=== PATIENT | female | born 1980 | race Caucasian/White ===

== ENCOUNTER 2023-06-19 08:47 | Day surgery (SDC) | payer OTHER ==
[2023-06-16 08:51] VITALS: BP 137/85
[~2023-06-19] VITALS: Ht 170.2 cm; Wt 104.5 kg
[2023-06-19 09:03] VITALS: BP 157/78
[2023-06-19] MEDS ORDERED: ACETAMINOPHEN500 MG PO (13:32)
[2023-06-19] MEDS ORDERED: IBUPROFEN600 MG PO (13:32)
[2023-06-19] MEDS ORDERED: OXYCODON-ACETA1 EAC2 PO (13:32)
[2023-06-19 13:43] VITALS: BP 144/87
--- NOTE | 2023-06-19 13:51 | NUR ---
06/19/23 1351 Cassy Tineo 1319- PT ARRIVED TO PACU, AWAKE AND TALKING BUT DROWSY. ALL MONITORS APPLIED. LR INFUSING TO LFA IV. PT ANSWERS QUESTIONS APPROPRIATELY. DENIES NAUSEA. C/O 2/10 SORENESS TO RIGHT BREAST BUT TOLERABLE. PT IS TEARFUL, TISSUES PROVIDED. 1325- CONTINUE TO MONITOR PT, NO CHANGE IN STATUS. PAIN REMAINS THE SAME, DISCUSSED EATING AND PAIN PILL WITH PT PRIOR TO NUMBING WEARING OFF. PT VERBALIZES UNDERSTANDING. INTERMITTENT TEARS. 1330- PT REMAINS UNCHANGED, VITAL SIGNS STABLE. MAINTAINING O2 SATS ABOVE 92% ON ROOM AIR. WILL GET PT READY TO MOVE BACK TO DAY SURGERY. 1340- PT TAKEN VIA BED BACK TO DAY SURGERY, ALERT AND REMAINS INTERMITTENTLY TEARFUL. LR INFUSING TO LFA IV. PT ANSWERING QUESTIONS APPROPRIATELY. BEDSIDE REPORT GIVEN TO MAGDALENA NAVARRETE. CARE OF PT TURNED OVER AT THIS TIME.
--- NOTE | 2023-06-19 13:54 | NUR ---
LE 1340 PATIENT IN ROOM 4. VITAL SIGNS COMPLETE. PATIENT ALERT AND ORIENTED. BREATHING EQUAL AND UNLABORED. OXYGEN SATURATIONS ABOVE 90% ON ROOM AIR. PATIENT PAIN IS A 2/10. PATIENT STATES IT IS TOLERABLE. PATIENT DENIES BEING NASEAUTED. SURGICAL SITE CLEAN, DRY AND INTACT. IVF INFUSING. SCD'S ON. CALL LIGHT WITHIN REACH NO FUTHER NEEDS. NO QUESTIONS AT THIS TIME.
[2023-06-19 14:24] VITALS: BP 140/72
--- NOTE | 2023-06-19 15:05 | NUR ---
LE 1416 PATIENT GIVEN PRN PAIN MEDICINE. LE 1440 PATIENT HAS MET DISCHARGE CRITERIA. PATIENT IV D/C'D WNL. PATIENT GIVEN DISCHARGE INSTRUCTIONS. NO QUESTIONS AT THIS TIME. PATIENT WHEELED OUT OF FACILITY. NO FUTHER NEEDS.
--- NOTE | 2023-06-20 19:34 | OR ---
[facility] [address], [place] [address] Signed DATE OF OPERATION: 06/19/2023 SURGEON: Aparna Latham MD PREOPERATIVE DIAGNOSIS: Right central breast infiltrating ductal carcinoma, grade 1 of 3, ER/FL positive, 1.3 cm in size. POSTOPERATIVE DIAGNOSIS: Right central breast infiltrating ductal carcinoma, grade 1 of 3, ER/FL positive, 1.3 cm in size. PROCEDURES: 1. Injection of methylene blue dye for sentinel lymph node identification. 2. Right deep sentinel lymph node biopsy (three nodes excised). 3. Right needle localized partial mastectomy (central breast). ANESTHESIA: General endotracheal, Rigoberto Maradiaga CRNA. INDICATIONS: This 43-year-old white woman is a patient of Dr. Manuel Hairston. She was identified on screening mammogram to have an abnormality in the retroareolar area of the right breast in the mid depth. There was no palpable mass. She had no symptoms or signs of abnormality otherwise. Ultrasound and ultimately ultrasound-guided biopsy were performed confirming an infiltrating ductal carcinoma in the right breast in the retroareolar (central breast) area. Lesion was grade 1 of 3 and was ER/FL positive, HER-2/betina receptor is pending. 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 The lesion was considered to be 1.3 cm in size based on ultrasound criteria. She has a grandfather who had breast cancer but no other family history of breast cancer that she is aware of. Her options of management have been reviewed. She plans now for partial mastectomy, sentinel lymph node biopsy. Postoperative radiation therapy and other indicated interventions as pathology might warrant. The risk of bleeding, infection, cosmetic deformity, and so forth were reviewed with her in detail. She understands and wished to proceed. FINDINGS: Good localization of the lesion was noted on wire localized technique. Wide and deep excision of the mass was undertaken. A lateral margin of the excision site was somewhat granular in consistency and an additional margin was taken on the lateral aspect of the Electronically Signed By: APARNA LATHAM MD 06/20/23 1934 PATIENT NAME: AI TREVINO OPERATIVE REPORT DATE OF : 80 REPORT #: [id number] PHYSICIAN: APARNA LATHAM MD PCP: NO PRIMARY CARE PHYSICIAN REPORT IS CONFIDENTIAL AND NOT TO BE RELEASED WITHOUT AUTHORIZATION [facility] [address], [place] [address] Signed specimen. As regards sentinel lymph nodes avid uptake of dye and radiant nuclide was noted on the largest initial sentinel lymph node. Two other smaller lymph nodes were identified and dominantly with radionuclide. The remaining axilla was otherwise normal. PROCEDURE IN DETAIL: The patient was received from Radiology suite, taken to the operating room, given a general endotracheal anesthetic. Preoperative antibiotic of Ancef was given. Sequential compression device stockings used and heparin subcutaneously administered. The localizing wire was emanating from the medial aspect of the right breast with the lesion in the central breast itself. 0.5 mL of methylene blue dye was injected in the subepithelial space in the upper outer aspect of the right areola. The chest, axilla, and breast was prepared with a spray of Betadine type solution and draped sterilely. Interrogation of the right axilla with the C-Trak probe was undertaken showing avid uptake in the mid axilla just lateral to the pectoral muscle. A transverse incision was made there and using electrocautery, the dermis was divided. Sequential division of the subcutaneous tissue down to the axillary fat was undertaken ultimately identifying a dominant blue lymphatic. This was carefully followed into the depths of the axilla, ultimately identifying 1.5 cm lymph node that had good uptake of dye and radionuclide. This was secured with clips and ultimately excised and passed as sentinel lymph node #1. Additional interrogation of the deep axilla showed two other similar such nodes though with less blue dye uptake. These were sent as specimen separately. Hemostasis was assured with a few small clips and the wound was packed. Attention was turned towards the breast lesion itself. The areolar margin was marked and tension placed on the central breast and a curvilinear incision was made on the areolar margin in the medial aspect. Dissection was carried through the dermis with electrocautery. A flap was elevated medially allowing for delivery of the localizing wire. The wire was then grasped with parenchyma with an Allis clamp and wide resection undertaken using electrocautery. The lesion was entering medial to the breast extending to the retroareolar area largely, but in the mid to deeper portion of the breast itself. A wide resection was undertaken with meticulous care hoping to provide a negative margin. Specimen was oriented with a short stitch superiorly and long stitch medially. A specimen radiograph was performed which confirmed the offending lesion clip and wire in place. Reinspection of the biopsy excision site showed some firm and granular tissue on the lateral aspect of the cavity. This was widely excised and a new margin marked with sutures as well and labeled appropriately. Irrigation was undertaken with sterile water. Electrocautery was used Electronically Signed By: APARNA LATHAM MD 06/20/23 193 PATIENT NAME: AI TREVINO OPERATIVE REPORT DATE OF : [birth year] REPORT #: [id number] PHYSICIAN: APARNA LATHAM MD PCP: NO PRIMARY CARE PHYSICIAN REPORT IS CONFIDENTIAL AND NOT TO BE RELEASED WITHOUT AUTHORIZATION [facility] [address] [place], [place] [address] Signed for hemostasis. Lou hemostatic agent was insufflated into the cavity as well. The parenchyma was reapproximated with interrupted 2-0 Vicryl, providing excellent cosmesis of the central breast. The skin was closed with running subcuticular 3-0 Vicryl. Inspection of the right axilla shows good hemostasis. This wound too was closed with interrupted 2-0 Vicryl in a running subcuticular 3-0 Vicryl and Steri-Strips were applied to both sites as were Acticoat dressings. The patient tolerated the procedure well. Blood loss was less than 50 mL in aggregate. Sponge, needle, and instrument counts reported as correct x3. MD CHERYL De La Cruz/JULI /[id number] cc: Dr. Solis Hairston Copies: ~ Electronically Signed By: APARNA LATHAM MD 06/20/23 1934 PATIENT NAME: AI TREVINO OPERATIVE REPORT DATE OF : [birth year] REPORT #: [id number] PHYSICIAN: APARNA LATHAM MD PCP: NO PRIMARY CARE PHYSICIAN REPORT IS CONFIDENTIAL AND NOT TO BE RELEASED WITHOUT AUTHORIZATION
--- NOTE | 2023-06-23 11:41 | PATH ---
[facility] [address] [place], [place] [address] Signed SPECIMEN(S): A BREAST SENTINEL LYMPH NODE 1 SPECIMEN(S): B BREAST SENTINEL LYMPH NODE 2 SPECIMEN(S): C BREAST SENTINEL LYMPH NODE 3 SPECIMEN(S): D ADDITIONAL RIGHT AXILLARY TISSUE SPECIMEN(S): E RIGHT BREAST SPECIMEN(S): F RIGHT BREAST SPECIMEN SOURCE: A. BREAST SENTINEL LYMPH NODE 1 B. BREAST SENTINEL LYMPH NODE 2 C. BREAST SENTINEL LYMPH NODE 3 D. ADDITIONAL RIGHT AXILLARY TISSUE E. RIGHT BREAST F. RIGHT BREAST CLINICAL HISTORY: Infiltrating ductal carcinoma right breast. Specimen Time to Fixation- 06/19/2023 12:46:00 PM FINAL PATHOLOGIC DIAGNOSIS: A. Lymph node, sentinel #1, excision: - One lymph node, negative for metastatic carcinoma (0/1) B. Lymph node, sentinel #2, excision: - One lymph node, negative for metastatic carcinoma (0/1) C. Lymph node, sentinel #3, excision: - One lymph node, negative for metastatic carcinoma (0/1) D. Lymph nodes, additional right axillary, excision: - Three lymph nodes, negative for metastatic carcinoma (0/3) E. Breast, right, lumpectomy: - Invasive ductal carcinoma, see synoptic report F. Breast, right "additional lateral margin", excision: - Ductal carcinoma in situ, negative for invasive carcinoma - Ductal carcinoma in situ is 4 mm from the new lateral margin INVASIVE CARCINOMA OF THE BREAST: Resection SPECIMEN Procedure: Excision (less than total mastectomy) Specimen Laterality: Right TUMOR Tumor Site: Not specified Histologic Type: Invasive carcinoma of no special type (ductal) Glandular (Acinar) / Tubular Differentiation: Score 3 PATIENT NAME: AI TREVINO PATHOLOGY DATE OF : [birth year] REPORT #: [id number] PHYSICIAN: RADHA PATHOLOGY PCP: NO PRIMARY CARE PHYSICIAN REPORT IS CONFIDENTIAL AND NOT TO BE RELEASED WITHOUT AUTHORIZATION [facility] [address] [place], [place] [address] Signed Nuclear Pleomorphism: Score 3 Mitotic Rate: Score 2 Overall Grade: Grade 3 (scores of 8 or 9) Tumor Size: Greatest dimension of largest invasive focus (Millimeters) - 28 mm Tumor Focality: Single focus of invasive carcinoma Ductal Carcinoma In Situ (DCIS): Present - Positive for extensive intraductal component (EIC) Size (Extent) of DCIS: Estimated size (extent) of DCIS is at least (Millimeters) - 30 mm Architectural Patterns: Cribriform Nuclear Grade: Grade II (intermediate) Necrosis: Not identified Lymphovascular Invasion: Not identified Microcalcifications: Not identified Treatment Effect in the Breast: No known presurgical therapy MARGINS Margin Status for Invasive Carcinoma: All margins negative for invasive carcinoma Distance from Invasive Carcinoma to Closest Margin: Greater than - 5 mm Closest Margin(s) to Invasive Carcinoma: Lateral Margin Status for DCIS: All margins negative for DCIS Distance from DCIS to Closest Margin: 4 mm Closest Margin(s) to DCIS: Lateral REGIONAL LYMPH NODES Regional Lymph Node Status: All regional lymph nodes negative for tumor Total Number of Lymph Nodes Examined (sentinel and non-sentinel): 6 Number of [place] Nodes Examined: 3 PATHOLOGIC STAGE CLASSIFICATION (pTNM, AJCC 8th Edition) Reporting of pT, pN, and (when applicable) pM categories is based on information available to the pathologist at the time the report is issued. As per the AJCC (Chapter 1, 8th Ed.) it is the managing physician's responsibility to establish the final pathologic stage based upon all pertinent information, including but potentially not limited to this pathology report. pT Category: pT2 pN Category: pN0 ADDITIONAL FINDINGS Additional Findings: Biopsy site changes, fibroadenomatous changes, fibrocystic changes Breast Biomarker Testing Performed on Previous Biopsy: PATIENT NAME: AI TREVINO PATHOLOGY DATE OF : [birth year] REPORT #: [id number] PHYSICIAN: RADHA DIAZ PCP: NO PRIMARY CARE PHYSICIAN REPORT IS CONFIDENTIAL AND NOT TO BE RELEASED WITHOUT AUTHORIZATION [facility] [address] [place] [id number] Signed Estrogen Receptor (ER) Status: Positive (greater than 10% of cells demonstrate nuclear positivity) Progesterone Receptor (PgR) Status: Negative HER2 (by immunohistochemistry): Negative (Score 0) Testing Performed on COMMENT: For parts A-C, histochemical stains for AE1/AE3 are performed and support the above interpretation. As part of [employer] Quality Improvement Program, this case was reviewed by another member of our pathology staff. P MICROSCOPIC EXAMINATION: Histologic sections of all submitted blocks are examined by light microscopy. These findings, together with the gross examination, support the pathologic diagnosis. GROSS DESCRIPTION: A. The specimen, labeled and designated "Dany, sentinel lymph node #1," is received in formalin and consists of irregular shaped yellow-bales, fibroadipose tissue that measure 3.0 x 2.2 x 0.8 cm. Sectioning through the specimen to reveal one possible lymph node that measure 1.3 x 0.7 x 0.7 cm. Possible lymph node is previously blue-colored. Possible lymph node is bisected. Entirely submitted in (A1). B. The specimen, labeled and designated "Dany, sentinel lymph nodes #2," is received in formalin and consists of irregular shaped yellow-bales, fibroadipose tissue fragment that measures 2.2 x 1.4 x 0.8 cm. Sections through the specimen reveal pink-bales possible lymph node that measure 1.5 x 1.2 x 0.7 cm. Possible lymph node is bisected and entirely submitted in (B1). C. The specimen, labeled and designated "Dany, sentinel node #3," is received in formalin and consists of irregular shaped yellow-bales, fibroadipose tissue fragment that measure 2.5 x 1.7 x 0.7 cm. Sectioning through the specimen reveals pink-bales, possible lymph node that measures 0.4 cm in greatest dimension. Possible lymph node is entirely submitted in (C1). D. The specimen, labeled and designated "Dany, additional right axillary tissue," is received in formalin and consists of irregular shaped yellow-bales PATIENT NAME: AI TREVINO PATHOLOGY DATE OF : [birth year] REPORT #: [id number] PHYSICIAN: RADHA DIAZ PCP: NO PRIMARY CARE PHYSICIAN REPORT IS CONFIDENTIAL AND NOT TO BE RELEASED WITHOUT AUTHORIZATION [address] [address] Signed fibroadipose tissue that measure 5.2 x 3.3 x 0.7 cm. Sectioning through the specimen reveals regular adipose tissue. Lymph node tissued are not grossly identified. Entirely submitted in (D1-D4). E. The specimen, labeled and designated "Dany, right breast tissue," is received in formalin and consists of fibroadipose tissue that measure 6.5 x 4.5 x 5.5 cm. The specimen weighs 69 g. Specimen is oriented: Short stitch-superior, long stitch-medial. Specimen is inked: Superior-blue, inferior-green, anterior-yellow, posterior-black, medial-red, lateral-orange. The specimen is serially sectioned from anterior to posterior in 16 slides. Sectioning through the specimen reveals pink-bales, ill-defined, irregular shaped lesion that measure 2.8 x 2.8 x 2.0 cm. Sectioning through the lesion reveals reese-white, gritty surface with area of congestion that measure 0.8 x 0.2 cm. The lesion is 0.8 cm from anterior margin, 3.0 cm from posterior margin, 0.3 cm from inferior margin, 0.8 cm from superior margin, abuts lateral margin and 1.5 cm from medial margin. Metal coiled wire biopsy clip is identified in slice #7. Fibrous tissue is approximately 20% of the specimen. The remaining tissue is regular fibroadipose tissue. Cassette Summary: (E1) lesion with lateral and inferior margin, where the biopsy clip is identified (E2) lesion with lateral and inferior margin (E3) lesion to inferior margin (E4) lesion to superior margin (E5) medial margin closest to the lesion, sales representative health insurance section (E6) lesion with congested tissue, sales representative health insurance section (E7) anterior margin, perpendicular section (E8) posterior margin, perpendicular section F. The specimen, labeled and designated "Dany, right breast additional excision lateral margin," is received in formalin and consists of yellow-bales, fibroadipose tissue that measured 5.0 x 5.0 x 1.8 cm. The specimen weighs 24 g. 3 black sutures sandeep the new margin. The new margin is inked black and the opposite side is inked blue. Sectioning through the specimen reveals irregular shaped pink-white fibrous tissue that measure 1.5 x 1.2 x 0.8 cm. The fibrous tissue abuts the new margin. Grossing to the surface of the new margin is not grossly identified. No definitive masses are grossly identified. The fibrous tissue is approximately 10% of the specimen. Entire fibrous tissue with new and old margin is submitted in (F1-F7). PATIENT NAME: AI TREVINO PATHOLOGY DATE OF : [birth year] REPORT #: [id number] PHYSICIAN: RADHA PATHOLOGY PCP: NO PRIMARY CARE PHYSICIAN REPORT IS CONFIDENTIAL AND NOT TO BE RELEASED WITHOUT AUTHORIZATION [facility] [address] [place] [address] Signed Cold ischemic time: 11 minutes Approximate time in formalin: 43 hours and 15 minutes JS (under the direct supervision of a pathologist) The Gross Description was prepared using a voice recognition system. The report was reviewed for accuracy; however, sound-alike word errors, addition and/or deletions may occur. If there is any question about this report, please contact Client Services. ADDITIONAL NOTES: Immunohistochemical and/or in situ hybridization studies if performed in this case included appropriate positive controls that reacted as expected. This test was developed and its performance characteristics determined by [employer] It has not been cleared or approved by the U.S. Food and Drug Administration. The FDA has determined that such clearance or approval is not necessary. This test is used for clinical purposes. It should not be regarded as investigational or for research. [employer] is certified under the Clinical Laboratory Improvement Amendments of 1988 (CLIA) as qualified to perform high complexity clinical laboratory testing. PERFORMING LABORATORY: Technical component was performed by [employer] [address] [place] [id number] (CLIA# [id number]). Professional interpretation was performed by [facility] [address] [place] [phone] [id number] Diagnostician: Blaine Herrera MD Pathologist Electronically Signed 06/23/2023 Copies: ~ PATIENT NAME: AI TREVINO PATHOLOGY DATE OF : [birth year] REPORT #: [id number] PHYSICIAN: RADHA DIAZ PCP: NO PRIMARY CARE PHYSICIAN REPORT IS CONFIDENTIAL AND NOT TO BE RELEASED WITHOUT AUTHORIZATION
== END 2023-06-19 14:40 | disposition home or self-care (01) ==
LOC: DS 08:47 → MAM 08:47 → DS 11:30
PROVIDERS: ATTEND Surgery
PROC: 0HBT0ZZ Excision of Right Breast, Open Approach (ICD-10-PCS; principal; 2023-06-19 11:30)
PROC: 07B50ZZ Excision of Right Axillary Lymphatic, Open Approach (ICD-10-PCS; 2023-06-19 11:30)
DX: D05.11 Intraductal carcinoma in situ of right breast (principal); Z80.3 Family history of malignant neoplasm of breast; Z87.891 Personal history of nicotine dependence
CPT/HCPCS: 00400; 19281; 76098; J0131; J0690; J1100; J1644; J1885; J2001; J2405; J2704; J3010; J3475; J3490; J7121; Q9968

== ENCOUNTER 2025-02-03 08:45 | Day surgery (SDC) | payer OTHER ==
[2025-01-27 15:54] VITALS: BP 146/81
[~2025-02-03] VITALS: Ht 170.2 cm; Wt 100.9 kg
[~2025-02-03 08:45] MED LIST: ACETAMINOPHEN500 MG PO; BIOTIN5 MG PO; FISH OIL 500 M1 EAC1 PO; GINGER500 MG PO; IBLOOD GLUCOSE TEST STRIP 1 EA TEST VI PRN; IBUPROFEN600 MG PO; LACTATED RINGER'S 1,000 ML IV SCH; LIDOCAINE HCL 1% 5 ML SDV INJ ONE; MAGNESIUM250 MG PO; MULTIVITAMIN1 EACH PO; OXYCODON-ACETA1 EAC2 PO; TURMERIC500 M3 PO; VITAMIN C500 M4 PO; VITAMIN D3125 MC2 PO
[2025-02-03 09:19] VITALS: BP 124/72
--- NOTE | 2025-02-03 10:02 | NUR ---
0852: PATIENT ASKED TO COMPLETE TEST PRIOR TO RECEIVING ANESTHESIA FOR SURGERY. PATIENT DECLINED STATING THAT POST BREAST CA AND MEDICATIONS SHE TAKES HAS PUT HER IN TO MENOPAUSE AND SHE HASN'T HAD A PERIOD IN YEARS.
[2025-02-03] MEDS ORDERED: MIDAZOLAM HCL 2 MG/2 ML VIAL ONE ×2 (10:31→10:56)
[2025-02-03] MEDS ORDERED: KETOROLAC TROMETHAMINE 30 MG/ML VIAL ONE ×2 (10:31→10:48)
[2025-02-03] MEDS ORDERED: SUGAMMADEX SODIUM 200 MG/2 ML ML ONE ×2 (10:31→10:55)
[2025-02-03] MEDS ORDERED: fentaNYL citrate 100 MCG/2 ML VIAL ONE ×2 (10:31→10:57)
[2025-02-03] MEDS ORDERED: ACETAMINOPHEN 1,000 MG/100 ML VIAL ONE ×2 (10:31→10:56)
[2025-02-03] MEDS ORDERED: ondansetron HCL 4 MG/2 ML VIAL ONE ×2 (10:31→10:48)
[2025-02-03] MEDS ORDERED: propofoL 200 MG/20 ML VIAL ONE ×2 (10:31→10:48)
[2025-02-03] MEDS ORDERED: LIDOCAINE HCL 2% 20 MG/ML VIAL INJ ONE (10:31)
[2025-02-03] MEDS ORDERED: LIDOCAINE HCL 2% 5 ML SDV ONE ×2 (10:31→10:48)
[2025-02-03] MEDS ORDERED: ROCURONIUM BROMIDE 50 MG/5 ML SYR ONE ×2 (10:31→10:48)
[2025-02-03] MEDS ORDERED: DEXAMETHASONE SOD PHOS 4 MG/ML VIAL ONE ×2 (10:31→10:48)
[2025-02-03] MEDS ORDERED: dexmedeTOMIDine HCl 200 MCG/2 ML VIAL ONE ×2 (10:34→10:48)
[2025-02-03] MEDS ORDERED: LIDOCAINE HCL 1% 30 ML SDV ONE (10:48)
[2025-02-03] MEDS ORDERED: KETAMINE in NS 50 MG/5 ML SYR ONE (10:51)
[2025-02-03] MEDS ORDERED: LACTATED RINGER'S 1,000 ML IV ONE (11:49)
[2025-02-03] MEDS ORDERED: HYDROCODONE/ACETA 5/325 TAB PO PRN (12:15)
[2025-02-03] MEDS ORDERED: FAMOTIDINE 20 MG/ 2 ML VIAL IV PRN (12:15)
[2025-02-03] MEDS ORDERED: LACTATED RINGER'S 1,000 ML IV SCH (12:15)
[2025-02-03] MEDS ORDERED: NALOXONE HCL 0.4 MG SYR IV PRN ×2 (12:15→13:15)
[2025-02-03] MEDS ORDERED: ondansetron HCL 4 MG/2 ML VIAL IV PRN ×2 (12:15→13:15)
--- NOTE | 2025-02-03 12:28 | NUR ---
02/03/25 1228 Cathryn Rojas 1218-PT ARRIVES TO PACU VIA STRETCHER, RESTING SEMI FOWLERS, PT AWAKENS ON OWN BUT DROWSY, DENIES PAIN OR NAUSEA, VSS ON 6L VIA MASK. 1225-PT TITRATED TO RA, VS REMAIN STABLE.
[2025-02-03 13:00] VITALS: BP 131/62
[2025-02-03] MEDS ORDERED: SIMETHICONE 80 MG CHEW PO SCH (13:00)
[2025-02-03] MEDS ORDERED: PROCHLORPERAZINE EDISYLATE 10 MG/2 ML VIAL IV PRN (13:15)
[2025-02-03] MEDS ORDERED: IBLOOD GLUCOSE TEST STRIP 1 EA TEST VI PRN (13:15)
[2025-02-03] MEDS ORDERED: HYDROmorphone HCL 1 MG/ML SYR IV PRN (13:15)
[2025-02-03] MEDS ORDERED: fentaNYL citrate 50 MCG/ML SDV IV PRN (13:15)
[2025-02-03] MEDS ORDERED: droPERidol 5 MG/2 ML VIAL IV PRN (13:15)
[2025-02-03 13:58] VITALS: BP 112/54
[2025-02-03] MEDS ORDERED: SEVOFLURANE 250 ML BTL INH ONE (15:54)
--- NOTE | 2025-02-03 16:30 | NUR ---
1300: PATIENT BACK IN DAY SURGERY ROOM FROM PACU. RATES PAIN 3/10 IN ABDOMEN. PATIENT WITH 3 LAP SITES TO ABDOMEN. ALL SITES WNL. NO DRESSINGS ON SITES. NO DRAINAGE FROM SITES. IV SITE WNL. VS CHECKED. TOLERATING WATER. FRIEND AT BEDSIDE. CALL LIGHT WITHIN REACH. 1340: PATIENT ASSISTED OOB AND TO BATHROOM. GAIT STEADY TO AND FROM BATHROOM. VOID APPROXIMATELY 125 ML. SMALL AMOUNT OF BLOODY DRAINAGE FROM VAGINA SEEN IN HAT. PATIENT GETTING DRESSED. 1358: DISCHARGE INSTRUCTIONS GIVEN TO PATIENT AND FRIEND. VS CHECKED. IV DC'D WNL. TIP INTACT. DRESSING APPLIED. 1400: PATIENT DISCHARGED TO HOME WITH FRIEND VIA WHEELCHAIR.
--- NOTE | 2025-02-08 17:56 | PATH ---
[facility] [address] [place], [place] [address] Signed SPECIMEN(S): A BILATERAL FALLOPIAN TUBES AND OVARIES SPECIMEN SOURCE: A. BILATERAL FALLOPIAN TUBES AND OVARIES CLINICAL HISTORY: Risk reducing FINAL PATHOLOGIC DIAGNOSIS: Bilateral fallopian tubes and ovaries: - Two benign ovaries and oviducts. JVR MICROSCOPIC EXAMINATION: Histologic sections of all submitted blocks are examined by light microscopy. These findings, together with the gross examination, support the pathologic diagnosis. GROSS DESCRIPTION: The specimen, labeled and designated "Alice Saenz., bilateral fallopian tubes and ovaries per requisition," is received in formalin and consists of 2 violaceous fallopian tubes and attached ovaries with undesignated laterality. The first arbitrarily designated fallopian tube measures 4.7 x 0.5 x 0.5 cm and has an attached fimbriated end. The serosal surface is smooth with multiple pinpoint paratubal cyst. The attached ovary weighs 4 g and measures 3 x 1.8 x 1.4 cm. Specimen is serially sectioned revealing an intraparenchymal cyst measuring 1 cm in greatest dimension. There are no papillary excrescences present. The parenchyma is unremarkable. The second arbitrarily designated fallopian tube measures 5.6 x 0.8 x 0.6 cm and has an attached fimbriated end. The serosal surface is smooth with multiple pinpoint paratubal cysts. Corresponding ovary weighs 3 g and measures 2.5 x 1.7 x 1.2 cm. Specimen is serially sectioned revealing unremarkable ovarian parenchyma. Signals Collection Technician sections are submitted as follows: Cassette Summary: (A1) first fallopian tube, fimbriated end totally embedded (A2) first ovary, RS (A3) second fallopian tube, fimbriated end totally embedded (A4) second ovary, RS PATIENT NAME: AI SAENZ PATHOLOGY DATE OF : 80 REPORT #: [id number] PHYSICIAN: [facility] [employer] [facility] PCP: JUDI MORGAN MD REPORT IS CONFIDENTIAL AND NOT TO BE RELEASED WITHOUT AUTHORIZATION [facility] [address] [place], [place] [address] Signed AA (under the direct supervision of a pathologist) The Gross Description was prepared using a voice recognition system. The report was reviewed for accuracy; however, sound-alike word errors, addition and/or deletions may occur. If there is any question about this report, please contact Client Services. ADDITIONAL NOTES: Immunohistochemical and/or in situ hybridization studies if performed in this case included appropriate positive controls that reacted as expected. This test was developed and its performance characteristics determined by [facility]. It has not been cleared or approved by the U.S. Food and Drug Administration. The FDA has determined that such clearance or approval is not necessary. This test is used for clinical purposes. It should not be regarded as investigational or for research. [facility] is certified under the Clinical Laboratory Improvement Amendments of 1988 (CLIA) as qualified to perform high complexity clinical laboratory testing. PERFORMING LABORATORY: Technical component was performed by [facility], [address] [place] [id number] (CLIA# [id number]). Professional interpretation was performed by [email or web address] - [place] [facility] - [address] [place] [address] (CLIA#: [id number]). Diagnostician: Sunny Arevalo MD Pathologist Electronically Signed 02/08/2025 Copies: ~ PATIENT NAME: BELINDAAI E PATHOLOGY DATE OF : [birth year] REPORT #: [id number] PHYSICIAN: RADHA PATHOLOGY PCP: JUDI MORGAN MD REPORT IS CONFIDENTIAL AND NOT TO BE RELEASED WITHOUT AUTHORIZATION
== END 2025-02-03 14:00 | disposition home or self-care (01) ==
LOC: DS 08:45 → OPS 08:45 → DS 09:30 → OPS 09:30 → DS 12:00 → OPS 14:00
PROVIDERS: ATTEND Obstetrics & Gynecology
PROC: 0UT74ZZ Resection of Bilateral Fallopian Tubes, Percutaneous Endoscopic Approach (ICD-10-PCS; 2025-02-03)
PROC: 0UT24ZZ Resection of Bilateral Ovaries, Percutaneous Endoscopic Approach (ICD-10-PCS; principal; 2025-02-03 10:30)
DX: Z40.02 Encounter for prophylactic removal of ovary(s) (principal); C50.911 Malignant neoplasm of unspecified site of right female breast; Z79.899 Other long term (current) drug therapy; Z88.0 Allergy status to penicillin
CPT/HCPCS: 00840; J0131; J1100; J1885; J2003; J2250; J2405; J2704; J3010; J3490; J7121